=== PATIENT | male | born 1945 | race Caucasian/White ===

== ENCOUNTER 2018-04-12 09:47 | Day surgery (SDC) | payer OTHER ==
[~2018-04-12] VITALS: Ht 180.3 cm; Wt 116.0 kg
[~2018-04-12 09:47] MED LIST: ASPIRIN81 M2 PO; HYDROCHLOROTH12.5 M3 PO; IMDUR30 MG PO; KEFLEX500 MG PO; METOPROLOL TART25 MG PO; NITROSTAT0.4 MG SL; PRAVASTATIN SOD80 MG PO
== END 2018-04-12 18:15 | disposition short-term general hospital (02) ==
LOC: CATH 09:47 → ENRESERV 14:28 → CANRESERV 14:37 → 2SOUTH 14:42
PROC: B2111ZZ Fluoroscopy of Multiple Coronary Arteries using Low Osmolar Contrast (ICD-10-PCS; principal; 2018-04-12)
PROC: 4A023N7 Measurement of Cardiac Sampling and Pressure, Left Heart, Percutaneous Approach (ICD-10-PCS; principal; 2018-04-12)
DX: I25.119 Atherosclerotic heart disease of native coronary artery with unspecified angina pectoris (principal); I10 Essential (primary) hypertension; E78.5 Hyperlipidemia, unspecified; E66.01 Morbid (severe) obesity due to excess calories; E78.00 Pure hypercholesterolemia, unspecified; Z68.38 Body mass index [BMI] 38.0-38.9, adult; Z79.82 Long term (current) use of aspirin
CPT/HCPCS: C1769; C1887; C1894; G0378; J1644; J2250; J3010